=== PATIENT | female | born 1940 | race Caucasian/White ===

== ENCOUNTER → 2019-07-21 | Outpatient (CLI) | payer MEDICARE ==
[~2019-07-21] MED LIST: ARTISOL13 EACHEYE; ATOR20TA50 PO; BUPR1TAB11 PO; CEL100T PO; CHOL500021 PO; DILT1CAP77 PO; DULO60CA PO; FAMO-12 PO; FOLI1TAB6 PO; HYDR-531 PO; LACT10SO70 PO; LACTCAP3 PO; MELA10CA PO; OMEP20TA PO; ONDA-143 PO; OXYC15TA77 PO; POLY33504 PO; SENN1TAB14 PO; SPIR25TA8 PO; [UNRECOGNIZED DRUG - CODE] PO
[2019-07-21 10:53] VITALS: BP 198/64
--- NOTE | 2019-07-21 10:53 | NUR ---
Pre-Op Discharge Summary: See e-MAR for any medications given for this visit. Pre-op orders received and carried out per MD of EKG, LABS and chest xrays. Patient given a copy of EKG with instructions to go to [facility] out patient for further follow up care.
[2019-07-21 11:20] VITALS: BP 173/74
[2019-07-21 12:10] LABS: Basophils # (auto) 0 uL; Basophils % (auto) 0.7 % (0.0-2.0); Eosinophils # (auto) 0.2 uL; Eosinophils % (auto) 3.1 % (0.0-7.0); Hematocrit 42.8 % (36.0-46.0); Hemoglobin 14.3 g/dL (12.2-16.2); Lymphocytes # (auto) 1.7 uL; Lymphocytes % (auto) 31.2 % (10.0-50.0); Mean Corpuscular Hemoglobin 31.9 pg (28.0-32.0); Mean Corpuscular Hgb Conc. 33.4 g/dL (32.0-36.0); Mean Corpuscular Volume 95.4 fL (80.0-100.0); Monocytes # (auto) 0.5 uL; Monocytes % (auto) 8.5 % (0.0-12.0); Neutrophils % (auto) 56.5 % (37.0-80.0); Platelet Count (auto) 207 10^3/uL (140-450); Red Blood Cells 4.48 10^6/uL (4.0-5.20); Red Cell Distribution Width 14.3 % (11.8-14.3); White Blood Cell 5.4 10^3/uL (4.4-10.8)
[2019-07-21 12:19] LABS: Calcium 9.1 mg/dL (8.5-10.1); Potassium 4.3 mmol/L (3.5-5.1)
[2019-07-21 12:21] LABS: BUN/Creatinine Ratio 37.1
[2019-07-21 12:24] LABS: INR 0.93 (0.9-1.15); Partial Thromboplastin Time 26.6 sec (23.64-32.05)
== END | disposition home or self-care (01) ==
LOC: CHF HDHVI 10:36
PROVIDERS: ATTEND Internal Medicine Cardiovascular Disease
DX: Z01.812 Encounter for preprocedural laboratory examination (principal); Z87.891 Personal history of nicotine dependence; Z88.8 Allergy status to other drugs, medicaments and biological substances
CPT/HCPCS: 36415; 80048; 85025; 85610; 85730; 93005; G0463

== ENCOUNTER → 2019-09-18 | Outpatient (CLI) | payer MEDICARE ==
[~2019-09-18] VITALS: Ht 157.5 cm; Wt 81.6 kg
[~2019-09-18] MED LIST changes: +ADENOSINE 69 MG in GIVE UN-DILUTED 0 ML IV ONE; +ADENOSINE 90 MG/30 ML INJ IV ONE
== END | disposition home or self-care (01) ==
LOC: Rad HDHVI 13:40
PROVIDERS: ATTEND Internal Medicine Cardiovascular Disease
DX: E11.9 Type 2 diabetes mellitus without complications (principal); E78.00 Pure hypercholesterolemia, unspecified; I10 Essential (primary) hypertension; Z95.5 Presence of coronary angioplasty implant and graft
CPT/HCPCS: 78452; 93005; 96374; 96375; A9500; J0153

== ENCOUNTER 2020-05-13 18:54 | Inpatient (IN) | payer MEDICARE ==
[~2020-05-13] VITALS: Ht 157.5 cm; Wt 84.1 kg
[~2020-05-13 18:54] MED LIST changes: -ADENOSINE 69 MG in GIVE UN-DILUTED 0 ML IV ONE; -ADENOSINE 90 MG/30 ML INJ IV ONE; +DILT-29 PO; -DILT1CAP77 PO; +DOCU250C67 PO; -[UNRECOGNIZED DRUG - CODE] PO
[2020-05-13 20:16] LABS: Basophils # (auto) 0 10 ^3/uL (0-0.2); Basophils % (auto) 0.5 % (0.0-2.0); Eosinophils # (auto) 0.5 10 ^3/uL (0-0.8); Eosinophils % (auto) 5.1 % (0.0-7.0); Hematocrit 44.5 % (36.0-46.0); Hemoglobin 14.4 g/dL (12.2-16.2); Lymphocytes # (auto) 1.7 10 ^3/uL (0.4-5.4); Lymphocytes % (auto) 18.1 % (10.0-50.0); Mean Corpuscular Hemoglobin 29.8 pg (28.0-32.0); Mean Corpuscular Hgb Conc. 32.4 g/dL (32.0-36.0); Mean Corpuscular Volume 92.2 fL (80.0-100.0); Monocytes # (auto) 1.2 10 ^3/uL (0-1.3); Monocytes % (auto) 13.3 % (0.0-12.0); Neutrophils # (auto) 5.8 10 ^3/uL (1.6-8.6); Nucleated Red Blood Cells % 0.1 %; Platelet Count (auto) 292 10^3/uL (140-450); Red Blood Cells 4.83 10^6/uL (4.0-5.20); Red Cell Distribution Width 15.2 % (11.8-14.3); White Blood Cell 9.2 10^3/uL (4.4-10.8)
[2020-05-13 20:38] LABS: Albumin 3.6 g/dL (3.4-5.0); Calcium 9.4 mg/dL (8.5-10.1)
[2020-05-13 20:42] LABS: BUN/Creatinine Ratio 17.9; Bilirubin, Total 0.6 mg/dL (0.2-1.0); Total Protein 7.3 g/dL (6.4-8.2)
[2020-05-13] MEDS ORDERED: traZODone HCL 50 MG TAB PO SCH (21:00)
[2020-05-13 21:39] LABS: INR 1.07 (0.9-1.15)
[2020-05-13] MEDS ORDERED: NITROGLYCERIN 0.4 MG SL TAB SL PRN (21:45)
[2020-05-13] MEDS ORDERED: DEXTROSE (50%) 50ML SYRG IV PRN (21:45)
[2020-05-13] MEDS ORDERED: MORPHINE SULF INJ 2 MG/ML SYRINGE 1ML IV PRN (21:45)
[2020-05-13] MEDS: InsuLIN REG 1unit/0.01ml Soln (100units/ml) SC SCH (22:00)
[2020-05-13] MEDS ORDERED: PIPERACILLIN-TAZO 4.5GM 100 ML IV ONE (22:00)
[2020-05-13] MEDS ORDERED: busPIRone HCL 10 MG TAB PO PRN (22:00)
[2020-05-13] MEDS ORDERED: PIPERACILLIN-TAZOB 3.375GM 100 ML IV ONE (22:30)
[2020-05-13] MEDS: SODIUM CHLORIDE 0.9% 1,000 ML IV SCH (23:16)
[2020-05-13] MEDS: ARTIFICIAL TEARS 15ml EACHEYE SCH (23:17)
[2020-05-13] MEDS: ACCU-CHEK COMFORT CURVE STRIP VI SCH (23:17)
--- NOTE | 2020-05-13 23:40 | NUR ---
MS admit from ER MAN[facility]NA[facility]ES admitted to tele/MS COLITIS after SBAR received. Patient oriented to KARINA BROWNING RN primary RN, unit, room, bed, and unit policies regarding patient care and visiting hours. Patient weighed by bedscale and encouraged to call if they need something. All questions and concerns addressed, patient verbalized understanding.
[2020-05-14 05:00] VITALS: BP 113/72
[2020-05-14] MEDS: PIPERACILLIN-TAZOB 3.375GM 100 ML IV SCH ×3 (05:08→21:38)
[2020-05-14] MEDS: InsuLIN REG 1unit/0.01ml Soln (100units/ml) SC SCH ×4 (05:09→21:37)
[2020-05-14] MEDS: ARTIFICIAL TEARS 15ml EACHEYE SCH ×3 (05:09→21:43)
[2020-05-14] MEDS: ACCU-CHEK COMFORT CURVE STRIP VI SCH ×4 (05:10→21:37)
[2020-05-14] MEDS: SODIUM CHLORIDE 0.9% 1,000 ML IV SCH ×2 (05:11→17:45)
[2020-05-14] MEDS ORDERED: LACTULOSE 20Gm/30ML SOLN PO PRN (06:00)
--- NOTE | 2020-05-14 07:30 | NUR ---
Opening Shift Note Assumed care of patient, awake and alert. No S/S of distress/SOB or pain. Instructed on POC and to call for assist PRN, will continue to monitor for changes Q1hr and PRN. Fall precautions in place per safety protocol. Patient on 2L continuous oxygen NC.
[2020-05-14] MEDS ORDERED: DOCUSATE SOD 100 MG CAP PO PRN (08:00)
[2020-05-14] MEDS ORDERED: BACLOFEN 10 MG TAB PO SCH (08:00)
[2020-05-14] MEDS ORDERED: DOCUSATE SOD 100 MG CAP PO SCH (08:00)
[2020-05-14 09:00] VITALS: BP 113/50
[2020-05-14] MEDS: ONDANSETRON ODT 4 MG TAB PO SCH ×3 (09:28→21:43)
[2020-05-14] MEDS: ALLOPURINOL 300 MG TAB PO SCH (09:29)
[2020-05-14] MEDS: FAMOTIDINE 20 MG TAB PO SCH (09:29)
[2020-05-14] MEDS ORDERED: GABAPENTIN 300 MG CAP PO SCH (10:00)
[2020-05-14 13:00] VITALS: BP 129/64
--- NOTE | 2020-05-14 16:28 | NUR ---
Hospitalist MD Slade at bedside, aware of patient status. Per MD Slade, DC all pain meds as patient is getting too many. MD Slade aware, patient refused labs and sprague insertion. Will carry out new orders and cont to monitor patient.
--- NOTE | 2020-05-14 16:45 | NUR ---
Blood Culture Blood cultures positive for gram negative rods. Per MD Slade, patient covered with zosyn. Will cont to monitor patient.
[2020-05-14 17:00] VITALS: BP 119/57
--- NOTE | 2020-05-14 21:20 | NUR ---
POA: Lenore Mccall Patient's power of Thermodynamicist papers in chart. Lenore Mccall (JUS) wants to talk to Doctor in charge of patient's care. Please call Lenore PEREZ) at .
[2020-05-14] MEDS: MUPIROCIN 2% OINT 15gm or 22gm EACHNOSTRI SCH (21:36)
[2020-05-14 22:32] LABS: INR 1.08 (0.9-1.15)
[2020-05-14 22:54] VITALS: BP 133/67
[2020-05-15] MEDS: SODIUM CHLORIDE 0.9% 1,000 ML IV SCH ×2 (03:45→13:45)
[2020-05-15 05:14] VITALS: BP 121/70
[2020-05-15] MEDS: ACCU-CHEK COMFORT CURVE STRIP VI SCH ×2 (05:48→11:30)
[2020-05-15] MEDS: ONDANSETRON ODT 4 MG TAB PO SCH ×2 (05:48→14:00)
[2020-05-15] MEDS: PIPERACILLIN-TAZOB 3.375GM 100 ML IV SCH ×2 (05:49→18:16)
[2020-05-15] MEDS: InsuLIN REG 1unit/0.01ml Soln (100units/ml) SC SCH ×2 (05:50→11:30)
[2020-05-15] MEDS: ARTIFICIAL TEARS 15ml EACHEYE SCH ×2 (05:50→14:00)
[2020-05-15 09:00] VITALS: BP 129/60
[2020-05-15] MEDS: FAMOTIDINE 20 MG TAB PO SCH (11:52)
[2020-05-15] MEDS: ALLOPURINOL 300 MG TAB PO SCH (11:52)
[2020-05-15] MEDS ORDERED: LIDOCAINE 1% HCL (LOCAL ANESTH.) INJ 20ML MDV ONE (11:53)
[2020-05-15] MEDS ORDERED: BUPIVACAINE 0.25% INJ 50ML VIAL ONE (11:53)
[2020-05-15] MEDS ORDERED: LIDOCAINE W/ EPINEPHRINE 1% 20ML VIAL ONE (11:55)
[2020-05-15] MEDS ORDERED: BUPIVACAINE W/ EPINEPH 0.25% INJ 50ML MDV ONE (11:55)
[2020-05-15] MEDS ORDERED: HYDROmorphone HCL 2 MG/ML VL ONE (13:03)
[2020-05-15] MEDS ORDERED: fentaNYL CITRATE 100 MCG/2 ML VL ONE (13:03)
[2020-05-15] MEDS ORDERED: KETOROLAC TROMETH 30 MG/ML 1ML VIAL ONE (13:04)
[2020-05-15] MEDS ORDERED: MIDAZOLAM HCL 1MG/1ML-2 ML VIAL ONE (13:04)
[2020-05-15] MEDS ORDERED: PROPOFOL 10 MG/ML 20 ML IV ONE (13:04)
[2020-05-15] MEDS ORDERED: ePHEDrine SULFATE 50 MG/ML AMP ONE (13:04)
[2020-05-15] MEDS ORDERED: ETOMIDATE (2MG/ML) 20ML VIAL IV ONE (13:04)
[2020-05-15] MEDS ORDERED: GLYCOPYRROLATE 0.2 MG/ML 1ML VIAL ONE (13:04)
[2020-05-15] MEDS ORDERED: DexAMETHasone SOD PHOS 10MG/1ML VIAL INJ ONE (13:04)
[2020-05-15] MEDS ORDERED: ONDANSETRON HCL 4 MG/2 ML VIAL ONE (13:04)
[2020-05-15] MEDS ORDERED: ROCURONIUM 10MG/ML 10ML VIAL IV ONE (13:04)
[2020-05-15] MEDS ORDERED: PHENYLEPHRINE HCL 10 MG/ML VL IV ONE (13:04)
[2020-05-15 14:55] LABS: Albumin 2.6 g/dL (3.4-5.0); BUN/Creatinine Ratio 19.7; Potassium 3.5 mmol/L (3.5-5.1)
[2020-05-15 14:58] LABS: Bilirubin, Total 0.4 mg/dL (0.2-1.0); Total Protein 6.3 g/dL (6.4-8.2)
[2020-05-15] MEDS ORDERED: ACCU-CHEK COMFORT CURVE STRIP VI ONE (15:30)
[2020-05-15] MEDS ORDERED: ONDANSETRON HCL 4 MG/2 ML VIAL IV PRN (15:30)
[2020-05-15] MEDS ORDERED: HYDROmorphone HCL 2 MG/ML VL IV PRN (15:30)
[2020-05-15 17:00] VITALS: BP 114/63
[2020-05-15] MEDS: MUPIROCIN 2% OINT 15gm or 22gm EACHNOSTRI SCH (18:14)
--- NOTE | 2020-05-15 19:30 | NUR ---
Patient received sleeping with HOB up. No s/sx of distress noted at this time. Call card with in reach. Bed in low position.
--- NOTE | 2020-05-15 20:30 | NUR ---
Checked patient, lethargic, hard to arouse, b/p 80/49. Paged Hospitalist.
--- NOTE | 2020-05-15 20:40 | NUR ---
Found patient unresponsive, unable to arouse, called Charge nurse and re paged Hospitalist.
--- NOTE | 2020-05-15 21:09 | NUR ---
Patient unresponsive, no pulse, no b/p, code blue per protocol, pronounced by Dr. Fried, at 2108.
--- NOTE | 2020-05-15 21:18 | NUR ---
Called patient's POA Lenore Mccall and notified that patient . JUS Bhatt will notify other family members.
--- NOTE | 2020-05-15 21:22 | NUR ---
Called [facility] spoke with Denise, case # [id number], patient is not eligible for donation.
--- NOTE | 2020-05-15 21:31 | NUR ---
Called Info Analyst's office, spoke with Segundo, information given. Per Segundo a Info Analyst officer will call back.
--- NOTE | 2020-05-15 21:48 | NUR ---
Called Dr.Mitesh Hagan's office spoke with Joe and left information that patient .
--- NOTE | 2020-05-15 21:54 | NUR ---
Called Dr. Slade's office, spoke with Yanna. Message to call will be relayed per Yanna.
--- NOTE | 2020-05-15 22:16 | NUR ---
Principal Trainer's office called back, spoke with Koko Hernandez, night clerk, body is released. No family independence case manager's number is issued, per Koko Hernandez.
--- NOTE | 2020-05-15 22:25 | NUR ---
Called [facility] for Mortuary information. No arrangements were made. Mortuary information given, awaiting call back.
--- NOTE | 2020-05-15 22:37 | NUR ---
Received a call from Lenore Mccall, [facility] is notified and will forward info to order control clerk blood bankcall manager.
[2020-05-15] MEDS ORDERED: DEXTROSE (50%) 50ML SYRG IV ONE (23:38)
[2020-05-15] MEDS ORDERED: EPINEPHrine HCL 1 MG/10 ML SYRG IV ONE (23:38)
--- NOTE | 2020-05-15 23:58 | NUR ---
CALLED [facility] SPOKE WITH ALISA, SHE WILL GIVE INFORMATION TO THEIR TRANSPORT TEAM WHO WILL ENVIRONMENTAL ENGINEER SCIENTIST THE BODY REMAINS.
--- NOTE | 2020-05-16 00:21 | NUR ---
CALLED [facility] AND RECEIVED CONSENT WITH ANOTHER RN TO RELEASE BODY REMAINS TO [facility]. VERIFIED WITH ALISA FROM [facility] THAT THEY DO TAKE BODY REMAINS FOR [facility].
--- NOTE | 2020-05-16 00:27 | NUR ---
RECEIVED CALL FROM [facility] FOR [facility], AUTHORIZATION TO RELEASE IS NEEDED TO BE FAXED TO . FAXED AUTHORIZATION.
--- NOTE | 2020-05-16 00:29 | NUR ---
[facility] ETA IS 1 1/2 HOUR PER [facility].
--- NOTE | 2020-05-16 01:32 | NUR ---
POST MORTEM CARE COMPLETED.
--- NOTE | 2020-05-16 02:49 | NUR ---
BODY REMAINS PICKED UP FOR [facility] TRANSPORT [facility] BY MR. PERERA. MORTUARY AUTHORIZATION SIGNED AND PLACED IN CHART.
== END 2020-05-15 23:39 | disposition expired | DRG 853 ==
LOC: ER 18:54 → OVERFLOW 18:55 → WEST WING 23:20
PROVIDERS: ADMIT Internal Medicine Cardiovascular Disease; ATTEND Internal Medicine Cardiovascular Disease
PROC: 0DNU4ZZ Release Omentum, Percutaneous Endoscopic Approach (ICD-10-PCS; 2020-05-15)
PROC: 5A12012 Performance of Cardiac Output, Single, Manual (ICD-10-PCS; 2020-05-15)
PROC: 0BH17EZ Insertion of Endotracheal Airway into Trachea, Via Natural or Artificial Opening (ICD-10-PCS; 2020-05-15)
PROC: 0FT44ZZ Resection of Gallbladder, Percutaneous Endoscopic Approach (ICD-10-PCS; principal; 2020-05-15 13:22)
DX: A41.9 Sepsis, unspecified organism (principal); G93.41 Metabolic encephalopathy; E87.1 Hypo-osmolality and hyponatremia; K56.7 Ileus, unspecified; K80.00 Calculus of gallbladder with acute cholecystitis without obstruction; G89.29 Other chronic pain; I11.0 Hypertensive heart disease with heart failure; K66.0 Peritoneal adhesions (postprocedural) (postinfection); I50.9 Heart failure, unspecified; K52.9 Noninfective gastroenteritis and colitis, unspecified; N19 Unspecified kidney failure; Z20.828 Contact with and (suspected) exposure to other viral communicable diseases; Y92.89 Other specified places as the place of occurrence of the external cause; Z90.710 Acquired absence of both cervix and uterus; K59.03 Drug induced constipation; F32.9 Major depressive disorder, single episode, unspecified; I25.10 Atherosclerotic heart disease of native coronary artery without angina pectoris; K21.9 Gastro-esophageal reflux disease without esophagitis; T40.2X5A Adverse effect of other opioids, initial encounter; E11.40 Type 2 diabetes mellitus with diabetic neuropathy, unspecified; E11.21 Type 2 diabetes mellitus with diabetic nephropathy; I46.9 Cardiac arrest, cause unspecified
CPT/HCPCS: 36415; 74018; 76705; 80053; 83690; 85025; 85610; 86850; 86900; 86901; 87040; 87077; 87081; 87186; 87426; 92950; 93005; G0378; J1100; J1885; J2001; J2250; J2405; J2543; J2704; J3490; Q0162